=== PATIENT | female | born 2000 | race Caucasian/White ===

== ENCOUNTER 2019-09-08 12:04 | Emergency (ER) | payer BC, SELFPAY ==
[2019-09-08 12:08] VITALS: BP 116/70; PULSE 67; RESP 20; TEMP 36.4; O2SAT 100; BMI 32.1
--- NOTE | 2019-09-08 12:17 | XR_ITS ---
WS: [id number] Left ankle, 3 views, 09/08/2019 Clinical Data: twisted Comparison: Intact ankle x-ray, 09/29/2011 Findings: No fractures or dislocations are seen. The ankle mortise is normal. The talus and calcaneus are unrem arkable. There is soft tissue swelling over the lateral malleolus. XR/XR ankle LT min 3V* [id number] Impression: 1. Negative for left ankle fracture. 2. Soft tissue swelling over lateral malleolus.
--- NOTE | 2019-09-08 12:34 | ED_ITS ---
HPI - Extremity Problem General: Chief complaint: Extremity Injury, Lower Stated complaint: ankle injury/pain Time Seen by Provider: 09/08/19 12:14 Source: patient Mode of arrival: ambulatory Limitations: no limitations History of Present Illness: HPI Narrative: was stepping down and twisted L ankle; has not been able to bear weight on extremity since MD Complaint: joint swelling and joint paint Onset (ago): hour(s) Pain Consistency: constant Location: left and lower extremity Radiation: none Relieving factors: immobilization Exacerbating factors: range of motion and weight bearing Associated symptoms: Reports no associated symptoms Review of Systems Musc: Reports: joint pain and joint swelling PFSH ED PFSH: Statuses (acute, chronic, etc) shown below reflect problem list status as previously entered and may not be historically accurate Social History Smoking and tobacco status: light tobacco smoker Female Reproductive History: Date of last menstrual period: 08/29/19 Physical Exam Const: COMMON NORMALS: no apparent distress, oriented x3, no limitations, alert and well nourished Extremity: OTHER: TTP and swelling noted to L lateral malleolus Neuro: COMMON NORMALS: oriented x3 SENSORIUM/ORIENTATION: Yes alert Course Vital Signs: Vital signs: Vital Signs Temperature 97.6 F 09/08/19 12:08 Pulse Rate 67 09/08/19 12:08 Respiratory Rate 20 H 09/08/19 12:08 Blood Pressure 116/70 09/08/19 12:08 Pulse Oximetry 100 09/08/19 12:08 MDM - Extremity (Nontraumatic) Imaging Data^: L ankle: Radiologist's impression: [address] [address] XRay Report Signed Patient: Marlon Laws Unit #: [id number] : 2000 Age/Sex: 19 / F ADM Date: 08/12 Loc: ER Room/Bed: Attending Dr: Ordering Provider/Ordering MD: Tali Park Date of Service: 09/08/19 Procedure(s): XR ankle LT min 3V* [id number] Accession Number(s): [id number] Report Number: [id number] WS: [id number] Left ankle, 3 views, 09/08/2019 Clinical Data: twisted Comparison: Intact ankle x-ray, 09/29/2011 Findings: No fractures or dislocations are seen. The ankle mortise is normal. The talus and calcaneus are unremarkable. There is soft tissue swelling over the lateral malleolus. XR/XR ankle LT min 3V* [id number] Impression: 1. Negative for left ankle fracture. 2. Soft tissue swelling over lateral malleolus. Dictated By: Hiral Stratton MD Signed By: Hiral Stratton MD Signed Date/Time: 09/08/191248 DD/ 1248 Discharge Plan Discharge Patient Disposition: Home, Self-Care Clinical Impression: Inversion sprain of left ankle Qualifiers: Encounter type: initial encounter Qualified Code(s): S93.402A - Sprain of unspecified ligament of left ankle, initial encounter Condition: Stable Discharge Orders: Discharge Order (Routine); Ordered 09/08/19 Ordered By: Tali Park Referrals: Kimberly Alas APN [Primary Care Provider] - Discharge Diet: Usual diet Discharge Activity: Use walker/crutches as instructed Patient Instructions: RICE Therapy (ED) Activity Restrictions/Additional Instructions: Weight bearing as tolerated. Ice, rest, compression/ALONA, elevation. If pain does not improve over the next week please follow up with primary care for re- evaluation. Coding Level of Care Code ED Business Initiatives Manager for John Hoskins Exam Problem Focused
[2019-09-08 13:08] VITALS: BP 125/80; PULSE 74; RESP 16; O2SAT 99
== END 2019-09-08 13:08 | disposition home or self-care (01) ==
LOC: ER 12:50
PROVIDERS: Emergency Provider Physician Assistant; Family Provider Nurse Practitioner Family; PCP Nurse Practitioner Family
DX: S93.402A Sprain of unspecified ligament of left ankle, initial encounter (principal); X50.1XXA Overexertion from prolonged static or awkward postures, initial encounter; F17.210 Nicotine dependence, cigarettes, uncomplicated
CPT/HCPCS: 29540; 73610; 99282; 99283; E0114

== ENCOUNTER → 2019-09-16 14:13 | Outpatient (BNVA) | payer BC, SELFPAY | PROVIDERS: Visit Provider Nurse Practitioner Family | DX: M25.572 Pain in left ankle and joints of left foot (principal) | CPT/HCPCS: 73610 ==

== ENCOUNTER → 2020-09-10 09:12 | Outpatient (BNVA) | payer BC, SELFPAY | PROVIDERS: Visit Provider Obstetrics & Gynecology | DX: Z12.4 Encounter for screening for malignant neoplasm of cervix (principal); Z11.3 Encounter for screening for infections with a predominantly sexual mode of transmission | CPT/HCPCS: 87491; 87591; 88175 ==

== ENCOUNTER → 2020-10-10 07:51 | Outpatient (BNVA) | payer BC, SELFPAY | PROVIDERS: Visit Provider Obstetrics & Gynecology | DX: Z30.9 Encounter for contraceptive management, unspecified (principal) | CPT/HCPCS: 81025 ==

== ENCOUNTER 2020-11-16 18:27 | Emergency (ER) | payer BC, OTHER, SELFPAY ==
[2020-11-16 18:55] VITALS: BP 125/74; PULSE 84; RESP 18; TEMP 36.5; O2SAT 99; BMI 35.9
--- NOTE | 2020-11-16 18:56 | XRR_ITS ---
PROCEDURE INFORMATION: Exam: XR Right Foot Exam date and time: 11/16/2020 7:12 PM Age: 20 years old Clinical indication: Pain; Foot; Right; Additional info: Injury TECHNIQUE: Imaging protocol: XR Right foot. Views: 3 or more views. COMPARISON: No relevant prior studies available. FINDINGS: Bones/joints: Normal. Soft tissues: Normal. XR/XR foot RT min 3V* [id number] IMPRESSION: No acute findings.
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
== END 2020-11-16 20:36 | disposition home or self-care (01) ==
PROVIDERS: Emergency Provider Physician Assistant
DX: S93.401A Sprain of unspecified ligament of right ankle, initial encounter (principal); S90.811A Abrasion, right foot, initial encounter; V86.35XA Unspecified occupant of 3- or 4- wheeled all-terrain vehicle (ATV) injured in traffic accident, initial encounter; Z87.891 Personal history of nicotine dependence
CPT/HCPCS: 73610; 73630; 99283; E0114

== ENCOUNTER 2021-01-18 18:33 | Emergency (ER) | payer BC, OTHER, MEDICAID, SELFPAY ==
[2021-01-18 18:46] VITALS: BP 132/83; PULSE 77; RESP 18; TEMP 36.7; O2SAT 98; BMI 37.1
[2021-01-18 23:26] VITALS: BP 154/106; PULSE 95; RESP 18; O2SAT 99
--- NOTE | 2021-01-18 23:29 | ED_ITS ---
HPI - Female Genitourinary General: Chief complaint: Urogenital-Female Stated complaint: IUD Complications/Swollen Feet Time Seen by Provider: 01/18/21 23:19 History of Present Illness: HPI Narrative: Patient is a 20-year-old female comes to the ED with vaginal bleeding and UTI symptoms. Patient says she noticed the IUD string hanging out of her vagina earlier today and then started having vaginal bleeding and some abdominal pain. She did state that her period is supposed to start today. Patient had IUD placed back on October 10, 2020. Patient also says that she has a foul odor coming from her vagina that she noticed today as well. She is also complaining of having some burning when she urinates and also having increased urine frequency. She states she feels like she has to urinate a lot more than usual. Denies any fever, chills, nausea/vomiting, bowel symptoms. Associated symptoms: Reports abdominal pain (Generalized left upper and left lower quadrant pain); Deny headache(s) or nausea Date of Last Menstrual Period: 01/18/21 Review of Systems Const: Denies: fever(s), chills or fatigue Eyes: Denies: change in vision or eye discomfort ENMT: Denies: throat pain, odynophagia, nasal discharge or nasal congestion Card: Denies: chest pain, palpitations, edema, swelling of feet/ankles, dyspnea on exertion or orthopnea Resp: Denies: dyspnea, productive cough or non-productive cough GI: Reports: abdominal pain (Generalized left upper and left lower quadrant pain); Denies: nausea, vomiting, diarrhea, constipation or hematochezia : Reports: dysuria, urinary frequency, vaginal odor, vaginal bleeding and other (IUD string outside of vagina); Denies: flank pain or hematuria Musc: Denies: neck pain, back pain or extremity swelling Skin/Breast: Denies: rash or new lesions Neuro: Denies: headache(s), numbness in extremities or weakness in extremities PFSH ED PFSH: Medical History Depression Has had symptoms on and off since she was a teenager and has taken medication in the past. Denies any medicine use since 2049 until she was placed on Zoloft and this has been working well for her. Is being managed by her primary care provider. She does not have a therapist No pertinent past medical history Denies diabetes, asthma, hypertension, seizures, DVT/PE PCP: SIMÓN Rodríguez Surgical History History of cholecystectomy July 2019---laparoscopic procedure performed at [facility] by Dr. Nava [place] teeth removed (~2013) 2013 Family History Grandmother Breast cancer paternal, age at diagnosis unknown Family/Other Diabetes Maternal great aunt, [place] great grandmother Breast cancer maternal great grandmother, diagnosed at age 84 Denies family history of Colon cancer Ovarian cancer Heart disease Hyperlipidemia Hypertension Uterine cancer Thyroid condition Stroke Social History Smoking and tobacco status: former smoker Quit status (tobacco): has quit using tobacco Year quit tobacco: 02/23/2019 Former quit date comment: Started smoking at age 16; smoked 1/2 pack per day Alcohol intake: never Current occupational status: unemployed Female Reproductive History: Date of last menstrual period: 01/18/21 Physical Exam Const: COMMON NORMALS: no acute distress, patient oriented x3, healthy appearing and alert GENERAL APPEARANCE: cooperative and comfortable HENMT: COMMON NORMALS: normocephalic HEAD & SCALP: normocephalic MOUTH: Normal oral and palatal mucosa present THROAT: posterior oropharynx normal and uvula midline Neck/C-Spine: COMMON NORMALS: supple GENERAL: Yes normal visual inspection Resp: COMMON NORMALS: normal respiratory effort, No retractions, No use of accessory muscles and clear to auscultation bilaterally AUSCULTATION: clear to auscultation bilaterally Cardio: COMMON NORMALS: regular rate, regular rhythm, S1 normal heart sound present, S2 normal heart sound present, No gallops present (Cardio), No clicks present (Cardio), No murmurs present (Cardio) and Peripheral pulses 2+ throughout RATE: regular rate RHYTHM: regular rhythm HEART SOUNDS: S1 normal heart sound present and S2 normal heart sound present PERIPHERAL PULSES: Peripheral pulses 2+ throughout GI: COMMON NORMALS: Normal to inspection, nondistended, normoactive bowel sounds present, Soft to palpation, non-tender and no masses PALPATION: Yes Soft to palpation and Yes Tenderness to palpation present (GI) (Generalized) Details: LLQ and LUQ : COMMON NORMALS: Yes no CVA tenderness BLADDER/KIDNEY EXAM: Yes bladder normal to palpation and Yes no CVA tenderness BIMANUAL EXAM - VAGINA & UTERUS: Yes bladder normal to palpation Back/Pelvis: COMMON NORMALS: no CVA tenderness Extremity: COMMON NORMALS: normal to inspection Neuro: COMMON NORMALS: patient oriented x3 and moves all extremities SENSORIUM/ORIENTATION: Yes alert Skin: GENERAL SKIN EXAM: dry skin Course Vital Signs: Vital signs: Vital Signs Temperature 98.1 F 01/18/21 18:46 Pulse Rate 83 01/19/21 01:35 Respiratory Rate 18 01/19/21 01:35 Blood Pressure 142/84 01/19/21 01:35 Pulse Oximetry 100 01/19/21 01:35 MDM - Female MDM Narrative: Medical decision making narrative: Patient is a 20-year-old female comes to the ED with some vaginal bleeding and is concerned about IUD being out of place. Patient says she is supposed to be starting her period today as well. CBC, CMP and UA were unremarkable. hCG negative. Ultrasound of the pelvic with transvaginal shows IUD in good placement in no other acute findings. Patient was diagnosed with IUD in place and discharged home. She was told to follow-up with her OB/gyne doctor in the next 7 days for reevaluation. Return to ED precautions given. Patient understood and agree with plan. Lab Data: Attestation: I reviewed the patient's lab results. Labs: Lab Results 01/18/21 01/18/21 01/18/21 Range/Units 23:45 23:45 23:45 WBC 9.6 (4.0-10.0) 10^3/ uL RBC 4.58 (4.1-5.3) 10^6/u L Hgb 12.3 (11.5-15.3) g/dL Hct 37.4 (37.0-47.0) % MCV 81.7 (81-99) fL MCH 26.9 L (28.0-34.0) pg MCHC 32.9 (30.0-36.0) g/dL RDW 13.7 (12.1-15.1) % Plt Count 279 (130-400) 10^3/c mm MPV 8.9 (7.4-10.4) fL Neut % (Auto) 58.3 % Lymph % (Auto) 32.5 % Piatt % (Auto) 6.7 % Eos % (Auto) 1.8 % Baso % (Auto) 0.4 % Neut # (Auto) 5.60 (1.8-7.7) 10^3/u L Lymph # (Auto) 3.1 (0.8-4.8) 10^3/u L Piatt # (Auto) 0.6 (0.2-0.9) 10^3/u L Eos # (Auto) 0.2 (0.0-0.8) 10^3/u L Baso # (Auto) 0.0 (0.0-0.1) 10^3/u L Nucleated RBC % (a uto) 0 % Nucleated RBCs # 0.0 /100WBC Sodium 137 (136-145) mmol/L Potassium 3.9 (3.5-5.1) mmol/L Chloride 103 (98-107) mmol/L Carbon Dioxide 21 L (22-29) mmol/L Anion Gap 16.9 (5-19) BUN 8 (6-20) mg/dL Creatinine 0.5 (0.5-0.9) mg/dL GFR Calculation 155.7 H (90-130) mL/min Glucose 94 (65-115) mg/dL Calculated Osmolal ity 282 L (285-295) mOsm/k g Calcium 8.6 (8.5-10.5) mg/dL Total Bilirubin 0.4 (0.15-1.2) mg/dL AST 17 (0-32) U/L ALT 14 (0-33) U/L Alkaline Phosphata se 68 (35-105) IU/L Total Protein 6.8 (6.6-8.7) g/dL Albumin 4.3 (3.5-5.2) g/dL Globulin 2.5 (1.3-4.6) g/dL HCG, Qual Negative (Negative) Urine Color (Yellow) Urine Appearance (CLEAR) Urine pH (5-7) Ur Specific Gravit y (1.005-1.030) Urine Protein (Negative) Urine Glucose (UA) (Normal) Urine Ketones (Negative) Urine Blood (Negative) Urine Nitrate (Negative) Urine Bilirubin (Negative) Urine Urobilinogen (Negative) mg/dL Ur Leukocyte Cindy ase (Negative) Urine RBC (0-2) /hpf Urine WBC (0-5) /hpf Ur Squamous Epith Cells (0-5) /hpf Amorphous Sediment Urine Bacteria (NONE) /hpf 01/19/21 Range/Units 00:39 WBC (4.0-10.0) 10^3/ uL RBC (4.1-5.3) 10^6/u L Hgb (11.5-15.3) g/dL Hct (37.0-47.0) % MCV (81-99) fL MCH (28.0-34.0) pg MCHC (30.0-36.0) g/dL RDW (12.1-15.1) % Plt Count (130-400) 10^3/c mm MPV (7.4-10.4) fL Neut % (Auto) % Lymph % (Auto) % Piatt % (Auto) % Eos % (Auto) % Baso % (Auto) % Neut # (Auto) (1.8-7.7) 10^3/u L Lymph # (Auto) (0.8-4.8) 10^3/u L Piatt # (Auto) (0.2-0.9) 10^3/u L Eos # (Auto) (0.0-0.8) 10^3/u L Baso # (Auto) (0.0-0.1) 10^3/u L Nucleated RBC % (a uto) % Nucleated RBCs # /100WBC Sodium (136-145) mmol/L Potassium (3.5-5.1) mmol/L Chloride (98-107) mmol/L Carbon Dioxide (22-29) mmol/L Anion Gap (5-19) BUN (6-20) mg/dL Creatinine (0.5-0.9) mg/dL GFR Calculation (90-130) mL/min Glucose (65-115) mg/dL Calculated Osmolal ity (285-295) mOsm/k g Calcium (8.5-10.5) mg/dL Total Bilirubin (0.15-1.2) mg/dL AST (0-32) U/L ALT (0-33) U/L Alkaline Phosphata se (35-105) IU/L Total Protein (6.6-8.7) g/dL Albumin (3.5-5.2) g/dL Globulin (1.3-4.6) g/dL HCG, Qual (Negative) Urine Color Yellow (Yellow) Urine Appearance Sl cloudy A (CLEAR) Urine pH 5 (5-7) Ur Specific Gravit y 1.010 (1.005-1.030) Urine Protein Neg (Negative) Urine Glucose (UA) Norm (Normal) Urine Ketones Negative (Negative) Urine Blood 3+ H (Negative) Urine Nitrate Negative (Negative) Urine Bilirubin Neg (Negative) Urine Urobilinogen Norm (Negative) mg/dL Ur Leukocyte Cindy ase Negative (Negative) Urine RBC >100 H (0-2) /hpf Urine WBC 0-4 H (0-5) /hpf Ur Squamous Epith Cells 0-4 H (0-5) /hpf Amorphous Sediment Not Reportable Urine Bacteria Trace (NONE) /hpf Imaging Data: US: Attestation: I personally reviewed and interpreted this imaging study as follows: Radiologist's impression: Pelvic ultrasound with transvaginal?prelim report?IUD in place and no other acute findings noted. Discharge Plan Discharge Patient Disposition: Home Clinical Impression: IUD (intrauterine device) in place Condition: Stable Prescriptions: No Action sertraline [Zoloft] 100 mg tablet 100 mg PO DAILY PRNRF: 0 Mirena 20 mcg/24 hours (6 yrs) 52 mg intrauterine device 1 device intrauterine .every 5 years Qty: 1 RF: 0 Discharge Orders: Discharge ED (Routine); Ordered 01/19/21 Ordered By: Joey Bailon Referrals: [facility], [Primary Care Provider] - Discharge Diet: Regular Discharge Activity: Resume usual activity Patient Instructions: Intrauterine Device (GEN) Activity Restrictions/Additional Instructions: Follow-up with your telecommunications network engineer doctor in 7 to 10 days for reevaluation. Take [id number] Tylenol or ibuprofen for any pain.. Return to the ER or your medical provider if condition worsens. Please read and understand discharge instructions. Thank you for choosing [facility] for your healthcare needs today. Please realize this is an emergency room and that we are providing you with a medical screening exam and this may not be complete and all inclusive of all the testing and or work up that you may need to determine your ailment or severity of your illness. It is very important that you follow up as instructed or that you return to the Emergency Department should you have concerns or if your condition changes or worsens in any way. Coding Level of Care Code ED Aircraft Mechanic Electrical And Radio for John Hoskins Exam Comprehensive
[2021-01-18 23:55] LABS: Basophils % 0.4 %; Eosinophils # 0.2 10^3/uL (0.0-0.8); Eosinophils % 1.8 %; Hematocrit 37.4 % (37.0-47.0); Hemoglobin 12.3 g/dL (11.5-15.3); Lymphocytes # 3.1 10^3/uL (0.8-4.8); Lymphocytes % 32.5 %; Mean Corpuscular HGB Conc 32.9 g/dL (30.0-36.0); Mean Corpuscular Hemoglobin 26.9 pg (28.0-34.0); Mean Corpuscular Volume 81.7 fL (81-99); Mean Platelet Volume 8.9 fL (7.4-10.4); Monocytes # 0.6 10^3/uL (0.2-0.9); Monocytes % 6.7 %; Neutrophils % 58.3 %; Nucleated Red Blood Cells % 0 %; Platelet Count 279 10^3/cmm (130-400); Red Blood Count 4.58 10^6/uL (4.1-5.3); Red Cell Distribution Width 13.7 % (12.1-15.1); White Blood Count 9.6 10^3/uL (4.0-10.0)
[2021-01-19 00:10] LABS: HCG, Serum Qual Negative (Negative)
[2021-01-19 00:15] LABS: Alanine Aminotransferase 14 U/L (0-33); Albumin Level 4.3 g/dL (3.5-5.2); Alkaline Phosphatase 68 IU/L (35-105); Anion Gap 16.9 (5-19); Aspartate Amino Transferase 17 U/L (0-32); Blood Urea Nitrogen 8 mg/dL (6-20); Calcium 8.6 mg/dL (8.5-10.5); Carbon Dioxide 21 mmol/L (22-29); Chloride 103 mmol/L (98-107); Globulin 2.5 g/dL (1.3-4.6); Glomerular Filtration Rate 155.7 mL/min (90-130); Glucose 94 mg/dL (65-115); Osmolality Calculated 282 mOsm/kg (285-295); Potassium 3.9 mmol/L (3.5-5.1); Sodium 137 mmol/L (136-145); Total Bilirubin 0.4 mg/dL (0.15-1.2); Total Protein 6.8 g/dL (6.6-8.7)
--- NOTE | 2021-01-19 00:36 | PC.NURSE ---
US in room
[2021-01-19 00:44] LABS: Add Urine Microscopic? YES; Bilirubin Urine Neg (Negative); Blood Urine 3+ (Negative); Glucose Urine UA Norm (Normal); Ketones Urine Negative (Negative); Leukocyte Esterase Urine Negative (Negative); Nitrate Urine Negative (Negative); Protein Urine Neg (Negative); Urine Color Yellow (Yellow); Urobilinogen Urine Norm (Negative); pH Urine 5 (5-7)
[2021-01-19 00:52] LABS: Add Urine Culture? Yes; Bacteria Urine TRACE /hpf; RBC Urine >100 /hpf (0-2); Squamous Epithelial Cell Urine 0-4 /hpf (0-5); WBC Urine 0-4 /hpf (0-5)
[2021-01-19 01:35] VITALS: BP 142/84; PULSE 83; RESP 18; O2SAT 100
--- NOTE | 2021-01-19 23:28 | USR_ITS ---
PROCEDURE INFORMATION: Exam: US Pelvis Complete, Transabdominal and US Pelvis, Transvaginal Exam date and time: 01/19/2021 12:16 AM Age: 20 years old Clinical indication: Other: PT felt string on iud, was afraid it was not in place TECHNIQUE: Imaging protocol: Real-time transabdominal and transvaginal pelvic ultrasound (complete) with image documentation. Transvaginal imaging was used for better evaluation of the endometrium, adnexa, and/or cervix. COMPARISON: US OB Limited [id number] 05/02/2019 12:01 PM FINDINGS: The uterus measures 7-8 cm in length. There is no visible focal myometrial mass. An IUD is present within the fundus of the uterus. This appears to be in satisfactory position, within limits of the exam. There is no intrauterine fluid. Endometrial thickness is 4.4 mm. There is no free pelvic fluid. The right ovary measures 33 x 19 x 30 mm, estimated volume 9.8 cc. The right ovary appears essentially unremarkable. The left ovary measures 27 x 20 x 21 mm, estimated volume 5.8 cc. The left ovary appears essentially unremarkable. Blood flow detected in each ovary. The urinary bladder was not completely evaluated/imaged at this time. Endovaginal scanning provided better visualization/evaluation of the endometrium and ovaries/adnexal regions, as discussed above. US/US pelvic with transvaginal IMPRESSION: 1. An IUD is present within the uterus, see above details. 2. Otherwise, essentially unremarkable sonographic appearance of the uterus and ovaries. 3. Other details discussed above.
== END 2021-01-19 01:35 | disposition home or self-care (01) ==
PROVIDERS: Emergency Medicine; Emergency Provider Physician Assistant
DX: Z97.5 Presence of (intrauterine) contraceptive device (principal)
CPT/HCPCS: 76830; 76856; 80053; 81001; 84703; 85025; 87086; 99283

== ENCOUNTER → 2021-03-18 11:29 | Outpatient (BNVA) | payer BC, OTHER, MEDICAID, SELFPAY | PROVIDERS: Visit Provider Nurse Practitioner Family | DX: Z20.822 Contact with and (suspected) exposure to COVID-19 (principal); J06.9 Acute upper respiratory infection, unspecified | CPT/HCPCS: 87635 ==

== ENCOUNTER → 2023-06-18 12:47 | Outpatient (BNVA) | payer BC, SELFPAY | PROVIDERS: Visit Provider Nurse Practitioner Women's Health | DX: Z32.00 Encounter for pregnancy test, result unknown (principal); N92.6 Irregular menstruation, unspecified | CPT/HCPCS: 81025 ==

== ENCOUNTER → 2023-06-22 08:25 | Outpatient (BNVA) | payer BC, SELFPAY | PROVIDERS: Visit Provider Obstetrics & Gynecology | DX: O46.91 Antepartum hemorrhage, unspecified, first trimester (principal); Z3A.01 Less than 8 weeks gestation of pregnancy | CPT/HCPCS: 76817; 84702; 86850 ==

== ENCOUNTER → 2023-07-09 08:58 | Outpatient (BNVA) | payer BC, MEDICAID, SELFPAY | PROVIDERS: Visit Provider Nurse Practitioner Women's Health | DX: O99.340 Other mental disorders complicating pregnancy, unspecified trimester; F41.9 Anxiety disorder, unspecified; Z34.80 Encounter for supervision of other normal pregnancy, unspecified trimester; A63.0 Anogenital (venereal) warts; Z3A.00 Weeks of gestation of pregnancy not specified | CPT/HCPCS: 81000 ==

== ENCOUNTER 2023-07-18 14:41 | Emergency (ER) | payer BC, MEDICAID, SELFPAY ==
[2023-07-18 14:43] VITALS: BP 120/70; PULSE 94; RESP 16; TEMP 36.8; O2SAT 99; BMI 30.5
--- NOTE | 2023-07-18 14:52 | ED_ITS ---
HPI - 2 General: Chief complaint: OB/Uterine Contractions Stated complaint: spotting,abd pain,10 wks preg Time Seen by Provider: 07/18/23 14:45 Source: patient Mode of arrival: ambulatory Limitations: no limitations History of Present Illness: Patient is a female at approximately 10 weeks here for complaints of vaginal bleeding/cramping. Patient states yesterday she had a very small amount of streaked blood on her toilet paper only noticed when wiping. She states she did not have any bleeding the remainder of the day or evening but states today she began having more bright red blood and quantifies as enough to soak a pad. She states bleeding upon arrival to the ED has improved. She is having some intermittent pelvic cramping. Patient is followed by Dr. Coates. She has an appointment with him on Thursday. She has had a previous ultrasound on 06/22 showing a live IUP. She was roughly 7 weeks of that ultrasound. Patient is not having any dysuria, frequency, urgency. She denies vaginal discharge, itching, or odor. She denies new sexual partners or concern for STIs. MD Complaint: vaginal bleeding Onset (ago): hour(s) Pain Consistency: intermittent Location: pelvis Severity: mild Quality: Cramping Relieving factors: none Exacerbating factors: none Vaginal discharge: none Vaginal bleeding: light Patient : Yes OB History - Current : no complications OB History - Previous Pregnancies: no complications care: followed by OB (Dr. Coates) and previous ultrasound confirms IUP Associated symptoms: Deny abdominal pain, dysuria, headache(s), malaise, nausea, vaginal discharge or vomiting Review of Systems 2 Const: Denies: fever(s), chills, body aches, fatigue or malaise Card: Denies: chest pain Resp: Denies: dyspnea GI: Denies: abdominal pain, nausea, vomiting or diarrhea : Reports: vaginal bleeding and pelvic pain (cramping); Denies: flank pain, difficulty voiding, dysuria, urinary frequency, urinary urgency, urinary hesitancy, genital lesions, genital pruritis or vaginal discharge Musc: Denies: neck pain, back pain, extremity pain or joint pain Skin/Breast: Denies: rash Neuro: Denies: headache(s), numbness in extremities, weakness in extremities or sensory changes PFSH ED 2 PFSH: Medical History No pertinent past medical history Denies diabetes, asthma, hypertension, seizures, DVT/PE PCP: SIMÓN Rodríguez Depression Has had symptoms on and off since she was a teenager and has taken medication in the past. Denies any medicine use since 2049 until she was placed on Zoloft and this has been working well for her. Is being managed by her primary care provider. She does not have a therapist Surgical History History of cholecystectomy July 2019---laparoscopic procedure performed at [facility] [place] by Dr. Elijah Adair teeth removed (~2013) 2013 Family History Grandmother Breast cancer paternal, age at diagnosis unknown Family/Other Diabetes Maternal great aunt, [place] great grandmother Breast cancer maternal great grandmother, diagnosed at age 84 Denies family history of Colon cancer Ovarian cancer Heart disease Hyperlipidemia Hypertension Uterine cancer Thyroid disease Stroke Physical Exam 2 Const: COMMON NORMALS: no acute distress, average body habitus, patient oriented x3, no limitations, healthy appearing and well nourished GI: COMMON NORMALS: Normal to inspection, nondistended, normoactive bowel sounds present, Soft to palpation, No hepatosplenomegaly present and no masses INSPECTION: Yes normal to inspection PALPATION: Yes Soft to palpation, Yes Tenderness to palpation present (GI) (mild tenderness lower abdomen/pelvis), No Guarding due to palpation present (GI), No Rigid due to palpation and Yes No hepatosplenomegaly present : COMMON NORMALS: Yes no CVA tenderness BLADDER/KIDNEY EXAM: Yes no CVA tenderness Back/Pelvis: COMMON NORMALS: no CVA tenderness Extremity: GENERAL: Yes normal exam except as noted Neuro: COMMON NORMALS: patient oriented x3 Skin: COMMON NORMALS: no rashes or lesions noted GENERAL SKIN EXAM: no rashes or lesions noted Course 2 Vital Signs: Vital signs: Vital Signs Temperature 98.2 F 07/18/23 14:43 Pulse Rate 80 07/18/23 15:30 Respiratory Rate 12 07/18/23 15:24 Blood Pressure 121/53 07/18/23 15:30 Pulse Oximetry 100 07/18/23 15:30 Oxygen Delivery Me thod Room Air 07/18/23 15:24 MDM - OB/Uterine Contractions Medical Decision Making US showing live IUP with normal heart rate. Vitals/blood work are unremarkable. She is AB positive blood type. She has follow up with Dr. Coates on Thursday already scheduled. Recommend pelvic rest until then. Return precautions given. Lab Data 07/18/23 14:53 07/18/23 14:53 Laboratory Results WBC 10.36 10^3/uL (3.29-11.43) 07/18/23 14:53 RBC 4.21 10^6/uL (3.85-5.65) 07/18/23 14:53 Hgb 12.40 g/dL (11.27-16.99) 07/18/23 14:53 Hct 38.4 % (36-47) 07/18/23 14:53 MCV 91.2 fl (85-98) 07/18/23 14:53 MCH 29.5 pg (27-33) 07/18/23 14:53 MCHC 32.3 g/dL (30-55) 07/18/23 14:53 RDW 12.9 % (12.1-15.1) 07/18/23 14:53 Plt Count 208 10^3/cmm (157-399) 07/18/23 14:53 MPV 8.6 fL (7.4-10.4) 07/18/23 14:53 Neut % (Auto) 72.0 % 07/18/23 14:53 Lymph % (Auto) 19.8 % 07/18/23 14:53 [place] % (Auto) 5.2 % 07/18/23 14:53 Eos % (Auto) 2.3 % 07/18/23 14:53 Baso % (Auto) 0.3 % 07/18/23 14:53 Neut # (Auto) 7.46 10^3/uL (1.8-7.7) 07/18/23 14:53 Lymph # (Auto) 2.1 10^3/uL (0.8-4.8) 07/18/23 14:53 [place] # (Auto) 0.5 10^3/uL (0.2-0.9) 07/18/23 14:53 Eos # (Auto) 0.2 10^3/uL (0.0-0.8) 07/18/23 14:53 Baso # (Auto) 0.0 10^3/uL (0.0-0.1) 07/18/23 14:53 Nucleated RBC % (auto) 0 % 07/18/23 14:53 Nucleated RBCs # 0.0 /100WBC 07/18/23 14:53 Sodium 136 mmol/L (136-145) 07/18/23 14:53 Potassium 3.7 mmol/L (3.5-5.1) 07/18/23 14:53 Chloride 105 mmol/L (98-107) 07/18/23 14:53 Carbon Dioxide 18 mmol/L (22-29) L 07/18/23 14:53 Anion Gap 16.7 (5-19) 07/18/23 14:53 BUN 9 mg/dL (6-20) 07/18/23 14:53 Creatinine 0.6 mg/dL (0.5-0.9) 07/18/23 14:53 GFR Calculation 123.9 mL/min (90-130) 07/18/23 14:53 Glucose 88 mg/dL (65-115) 07/18/23 14:53 Calculated Osmolality 280 mOsm/kg (285-295) L 07/18/23 14:53 Calcium 8.8 mg/dL (8.5-10.5) 07/18/23 14:53 Total Bilirubin 0.2 mg/dL (0.15-1.2) 07/18/23 14:53 AST 11 U/L (0-32) 07/18/23 14:53 ALT 10 U/L (0-33) 07/18/23 14:53 Alkaline Phosphatase 40 U/L (35-105) 07/18/23 14:53 Total Protein 6.7 g/dL (6.6-8.7) 07/18/23 14:53 Albumin 3.8 g/dL (3.5-5.2) 07/18/23 14:53 Globulin 2.9 g/dL (1.3-4.6) 07/18/23 14:53 Ser , Semi-Qnt 81363.00 mIU/mL 07/18/23 14:53 Blood Type AB Positive 07/18/23 14:53 Rho(D) Type Rh positive 07/18/23 14:53 XR interpretation done by ED provider, pending radiology final review (normal OB ultrasound per Brian/US tech) Discharge Plan Discharge Patient Disposition: Home Clinical Impression: First trimester bleeding Condition: Stable Prescriptions: No Action buspirone 5 mg tablet 5 mg PO BID Qty: 60 0RF Gummies 400 mcg-35 mg- 25 mg-5 mg tablet,chewable PO Discharge Orders: Discharge ED (Routine); Ordered 07/18/23 Ordered By: [place]ali [place] Referrals: Kimberly Alas APN [Primary Care Provider] - Activity Restrictions/Additional Instructions: As we discussed ultrasound appeared normal today. I recommend pelvic rest until you see Dr. Coates on Thursday at your currently scheduled appointment. Coding Level of Care Code ED Multifocal Lens Inspector for John Hoskins
--- NOTE | 2023-07-18 14:59 | USR_ITS ---
PROCEDURE INFORMATION: Exam: US First Trimester, Transabdominal and US , Transvaginal Exam date and time: 07/18/2023 3:56 PM Age: 22 years old Clinical indication: Lmp or gestational age (in weeks): 11w1d; Antepartum complications; Bleeding; ; Additional info: Bleeding/cramping; Approx 10 wks preg LABS AND CLINICAL REPORTS: Last menstrual period start date: 05/01/2023 Gestational age (Established): 11 w 1 d Estimated due date (Established): 02/05/2024 TECHNIQUE: Imaging protocol: Real-time transabdominal obstetrical ultrasound of the maternal pelvis and a first trimester , less than 14 weeks 0 days, with image documentation. Transvaginal imaging was used for better evaluation of the fetus, adnexa, and/or cervix. COMPARISON: US OB transvaginal [id number] 06/22/2023 8:29 AM FINDINGS: Gestation: Single live intrauterine . Embryonic/ heart rate: 176 bpm. heart rate 176 bpm. Extra-embryonic membranes/Placenta: Unremarkable. No subchorionic bleed. Amniotic fluid: Amniotic fluid and extra-amniotic fluid is normal for gestational age. BIOMETRY: Gestational age (AUA): 11 w 3 d. Ultrasonographic age 11 weeks 3 days. [place] length (CRL): 46.3 mm. EGA (CRL) is 11 w 3 d MATERNAL: Uterus: Unremarkable. Cervix: Cervical length measures 4.59 cm. Right ovary/adnexa: Right ovary not visualized. Left ovary/adnexa: Left ovary 15 mm cyst, likely follicular. Intraperitoneal space: No intraperitoneal free fluid. US/US OB <= 14 weeks fetus [id number] IMPRESSION: 1. Single live intrauterine . 2. Ultrasonographic age 11 weeks 3 days. 3. heart rate 176 bpm. 4. Right ovary not visualized. 5. Left ovary 15 mm cyst, likely follicular.
[2023-07-18 15:05] LABS: Basophils % 0.3 %; Eosinophils # 0.2 10^3/uL (0.0-0.8); Eosinophils % 2.3 %; Hematocrit 38.4 % (36-47); Lymphocytes # 2.1 10^3/uL (0.8-4.8); Lymphocytes % 19.8 %; Mean Corpuscular HGB Conc 32.3 g/dL (30-55); Mean Corpuscular Hemoglobin 29.5 pg (27-33); Mean Corpuscular Volume 91.2 fl (85-98); Mean Platelet Volume 8.6 fL (7.4-10.4); Monocytes # 0.5 10^3/uL (0.2-0.9); Monocytes % 5.2 %; Neutrophils # 7.46 10^3/uL (1.8-7.7); Nucleated Red Blood Cells % 0 %; Platelet Count 208 10^3/cmm (157-399); Red Blood Count 4.21 10^6/uL (3.85-5.65); Red Cell Distribution Width 12.9 % (12.1-15.1); White Blood Count 10.36 10^3/uL (3.29-11.43)
[2023-07-18 15:24] VITALS: BP 100/62; RESP 12; O2SAT 100
[2023-07-18 15:30] VITALS: BP 121/53; PULSE 80; O2SAT 100
[2023-07-18 15:38] LABS: Alanine Aminotransferase 10 U/L (0-33); Albumin Level 3.8 g/dL (3.5-5.2); Alkaline Phosphatase 40 U/L (35-105); Anion Gap 16.7 (5-19); Aspartate Amino Transferase 11 U/L (0-32); Blood Urea Nitrogen 9 mg/dL (6-20); Calcium 8.8 mg/dL (8.5-10.5); Carbon Dioxide 18 mmol/L (22-29); Chloride 105 mmol/L (98-107); Globulin 2.9 g/dL (1.3-4.6); Glomerular Filtration Rate 123.9 mL/min (90-130); Glucose 88 mg/dL (65-115); Osmolality Calculated 280 mOsm/kg (285-295); Potassium 3.7 mmol/L (3.5-5.1); Sodium 136 mmol/L (136-145); Total Bilirubin 0.2 mg/dL (0.15-1.2); Total Protein 6.7 g/dL (6.6-8.7)
[2023-07-18 16:38] VITALS: BP 121/53; PULSE 80; O2SAT 100
== END 2023-07-18 16:38 | disposition home or self-care (01) ==
PROVIDERS: Emergency Provider Physician Assistant; PCP Nurse Practitioner Family
DX: O20.9 Hemorrhage in early pregnancy, unspecified (principal); Z3A.10 10 weeks gestation of pregnancy
CPT/HCPCS: 36415; 76801; 80053; 84702; 85025; 86900; 99284

== ENCOUNTER → 2023-07-20 07:58 | Outpatient (BNVA) | payer BC, MEDICAID, SELFPAY | PROVIDERS: PCP Nurse Practitioner Family; Visit Provider Obstetrics & Gynecology | DX: Z34.80 Encounter for supervision of other normal pregnancy, unspecified trimester (principal) | CPT/HCPCS: 80307; 84315; 87086 ==

== ENCOUNTER → 2023-07-30 12:24 | Outpatient (BNVA) | payer BC, MEDICAID, SELFPAY | PROVIDERS: PCP Nurse Practitioner Family; Visit Provider Obstetrics & Gynecology | DX: Z34.90 Encounter for supervision of normal pregnancy, unspecified, unspecified trimester (principal); Z34.80 Encounter for supervision of other normal pregnancy, unspecified trimester; A63.0 Anogenital (venereal) warts; F41.9 Anxiety disorder, unspecified | CPT/HCPCS: 81000; 82105; 85025; 86592; 86762; 86803; 86850; 86900; 87340; 87491; 87591; 87806; 88175 ==

== ENCOUNTER → 2023-08-21 08:59 | Outpatient (BNVA) | payer BC, MEDICAID, SELFPAY | PROVIDERS: Visit Provider Nurse Practitioner Women's Health | DX: Z34.80 Encounter for supervision of other normal pregnancy, unspecified trimester (principal) | CPT/HCPCS: 82105; 84315 ==

== ENCOUNTER → 2023-09-21 09:36 | Outpatient (BNVA) | payer BC, MEDICAID, SELFPAY | PROVIDERS: Visit Provider Nurse Practitioner Women's Health | DX: Z34.90 Encounter for supervision of normal pregnancy, unspecified, unspecified trimester (principal) | CPT/HCPCS: 76805 ==

== ENCOUNTER → 2023-10-21 08:17 | Outpatient (BNVA) | payer BC, MEDICAID, SELFPAY | PROVIDERS: Visit Provider Nurse Practitioner Women's Health | DX: Z34.90 Encounter for supervision of normal pregnancy, unspecified, unspecified trimester; A74.9 Chlamydial infection, unspecified | CPT/HCPCS: 80307; 82950; 84315; 87491; 87591 ==

== ENCOUNTER → 2023-10-22 | Outpatient (BNVA) | payer BC, MEDICAID, SELFPAY | PROVIDERS: Visit Provider Nurse Practitioner Women's Health | DX: Z34.90 Encounter for supervision of normal pregnancy, unspecified, unspecified trimester | CPT/HCPCS: 80324; 80359 ==

== ENCOUNTER → 2023-10-29 14:16 | Outpatient (BNVA) | payer BC, MEDICAID, SELFPAY | PROVIDERS: Visit Provider Nurse Practitioner Women's Health | DX: Z34.90 Encounter for supervision of normal pregnancy, unspecified, unspecified trimester (principal) | CPT/HCPCS: 76816 ==

== ENCOUNTER → 2023-11-19 07:58 | Outpatient (BNVA) | payer BC, MEDICAID, SELFPAY | PROVIDERS: Visit Provider Obstetrics & Gynecology | DX: O99.342 Other mental disorders complicating pregnancy, second trimester; F32.A Depression, unspecified; F41.9 Anxiety disorder, unspecified; O98.812 Other maternal infectious and parasitic diseases complicating pregnancy, second trimester; A74.9 Chlamydial infection, unspecified; A63.0 Anogenital (venereal) warts; Z36.2 Encounter for other antenatal screening follow-up; Z3A.28 28 weeks gestation of pregnancy | CPT/HCPCS: 84315; 85025 ==

== ENCOUNTER 2023-12-02 21:45 | Outpatient (CLI) | payer BC, MEDICAID, SELFPAY ==
[2023-12-02 22:26] VITALS: BP 128/71; PULSE 86
[2023-12-02 22:42] VITALS: BP 120/59; PULSE 78
--- NOTE | 2023-12-02 22:43 | USR_ITS ---
PROCEDURE INFORMATION: Exam: US , Limited Exam date and time: 12/02/2023 10:54 PM Age: 23 years old Clinical indication: Lmp or gestational age (in weeks): 31w 0d; Antepartum complications; Bleeding; ; Patient HX: Spotting today LABS AND CLINICAL REPORTS: Last menstrual period start date: 04/28/2023 Gestational age (Established): 31 w 0 d Estimated due date (Established): 02/03/2024 TECHNIQUE: Imaging protocol: Real-time ultrasound of the maternal uterus with image documentation. Exam focused on the clinical indication. COMPARISON: [place] [id number] 10/29/2023 2:23 PM FINDINGS: Single living fetus in cephalic position. heart activity documented by the technologist, 134 bpm. Posterior placenta. No visible placental abnormality on the provided images. Amniotic fluid volume appears within normal limits for gestation, LARISA 15.6 cm Cervical length was estimated with transabdominal scanning, measuring approximately 3.9 cm. No definite cervical canal dilation or fluid on the provided images. measurements were not obtained at this time. Evaluation of anatomy was not performed at this time. No visible maternal adnexal abnormality. The urinary bladder was not completely evaluated/imaged at this time. US/US OB limited [id number] IMPRESSION: 1. Single living fetus, details above. 2. Posterior placenta. No visible placental abnormality on the provided images. 3. Amniotic fluid volume appears within normal limits for gestation, LARISA 15.6 cm 4. Other details discussed above.
[2023-12-03 00:10] VITALS: BP 124/57; PULSE 81
== END 2023-12-03 00:10 | disposition home or self-care (01) ==
LOC: OPOB 21:47 → OBGYN 21:48
PROVIDERS: Visit Provider Obstetrics & Gynecology
DX: O46.93 Antepartum hemorrhage, unspecified, third trimester (principal); Z3A.31 31 weeks gestation of pregnancy
CPT/HCPCS: 59025; 76815; 99211

== ENCOUNTER → 2024-01-11 07:49 | Outpatient (BNVA) | payer BC, MEDICAID, SELFPAY | PROVIDERS: Visit Provider Obstetrics & Gynecology | DX: Z34.80 Encounter for supervision of other normal pregnancy, unspecified trimester (principal); R82.5 Elevated urine levels of drugs, medicaments and biological substances | CPT/HCPCS: 80307; 84315; 87081 ==

== ENCOUNTER 2024-01-31 22:32 | Inpatient (IN) | payer BC, MEDICAID, SELFPAY ==
[2024-01-31 22:51] VITALS: BP 140/85; PULSE 117
[2024-01-31 23:11] VITALS: BP 124/66; PULSE 99
--- NOTE | 2024-01-31 23:15 | P.HP_ITS ---
Providers/Chief Complaint Admitting Physician: Citlaly Burger DO Primary NEW CAR MAKE READY MECHANIC: Dr. Coates Primary Care Provider: [facility] Chief Complaint: induction HPI NEW CAR MAKE READY MECHANIC History of Present Illness Marlon Laws is a 23 year old female at 39.2wk IUP admitted for Elective IOL. NADIRA 02/05/24. Pt denies problems during this . Denies YI, visual changes, SOB or CP or vaginal bleeding.Admits to good FM. 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 Denies need for treatment. C/O anxiety and depression but has not requested or been on medication thru this , states she was on zoloft sometime (2019)before but self discontinued. She denies suicidal ideas, or insomnia. Encouraged pt to discontinue use of Meth, for its unknown risk to development. EFM- Cat 1 No ctxs Cx 2cm/90%/-2 vtx. Review of Systems General: Reports: 10 or more systems reviewed and unremarkable except in HPI and below Medications/Allergies Home Medications Medication Instructions Recorded Confirmed Last Taken Type docosahexaenoic acid 200 mg 200 mg PO DAILY 10/21/23 01/25/24 Unknown History capsule ( DHA) omeprazole 20 mg capsule,delayed 20 mg PO DAILY #90 caps 10/21/23 01/25/24 Unknown Rx release metronidazole 500 mg tablet 2,000 mg (4 x 500 mg) PO ONCE #4 12/03/23 01/25/24 Unknown Rx tabs Allergies Allergy/AdvReac Type Severity Reaction Status Date / Time No Known Allergies Allergy Verified 01/25/24 10:54 PFSH NEW CAR MAKE READY MECHANIC PFSH: Medical History No pertinent past medical history Denies diabetes, asthma, hypertension, seizures, DVT/PE PCP: SIMÓN Rodríguez Depression Has had symptoms on and off since she was a teenager and has taken medication in the past. Denies any medicine use since 2049 until she was placed on Zoloft and this has been working well for her. Is being managed by her primary care provider. She does not have a therapist Surgical History History of cholecystectomy July 2019---[place] [facility] [place] Nava Pullman teeth removed (~2013) 2013 Family History Grandmother Breast cancer paternal, age at diagnosis unknown Family/Other Diabetes Maternal great aunt, [place] great grandmother Breast cancer maternal great grandmother, diagnosed at age 84 Denies family history of Colon cancer Ovarian cancer Heart disease Hyperlipidemia Hypertension Uterine cancer Thyroid disease Stroke Other Female Reproductive History: Hx Age of Menarche: 11 History History History 2 Term 1 0 Miscarriages/Ectopic 0 Living Children 1 Care NADIRA Calculator Estimated Delivery Date Method Current WG Current Estimate 02/05/24 LMP (Certain) 39w 2d Other Estimates 02/08/24 Ultrasound #1 38w 6d Specific Issues/Plans * CHLAMYDIA-- MANN at 20 wks * ANXIETY-rx buspar at 9wks; stopped tx * CONDYLOMA Vitals/I&O/Wt Last Vital Signs Pulse 99 01/31/24 23:11 BP 124/66 01/31/24 23:11 Physical Exam Const: COMMON NORMALS: no acute distress, patient oriented x3, healthy appearing, alert and well nourished Resp: COMMON NORMALS: normal respiratory effort and clear to auscultation bilaterally Cardio: COMMON NORMALS: regular rate, regular rhythm and No murmurs present (Cardio) Back/Pelvis: OTHER: Abd- soft, gravid nontender. Cx- 2cm/80%/-2 vtx. Extremity: COMMON NORMALS: no clubbing, cyanosis or edema and no calf tenderness Results Labs OB ([facility]): Obstetrics US 12/02/23 Blood Type AB Positive 07/30/23 Antibody Screen Negative 07/30/23 Hct 35.2 % (36-47) L 11/19/23 Hgb 11.30 g/dL (11.27-16.99) 11/19/23 Rho(D) Type Rh positive 07/30/23 Plt Count 288 10^3/cmm (157-399) 11/19/23 Hep Bs Antigen Non-reactive (Nonreactive) 07/20/23 Hepatitis C Antibody Non-reactive (Nonreactive) 07/20/23 Rubella IgG Antibody 37.2 IU/mL (0.0-10.0) H 07/20/23 RPR Nonreactive (Nonreactive) 07/20/23 HIV 1&2 Ab & HIV 1 Ag Non-reactive (Non-Reactiv) 07/20/23 C.trachomatis RNA (TMA) Not detected (NOT DETECTED) N.gonorrhoeae RNA (TMA) Not detected (NOT DETECTED) T. vaginalis Amp RNA Not detected (NOT DETECTED) 10/21/23 Chlamydia/GC Comment See note 10/21/23 Cystic Fibrosis Screen Negative 07/30/23 Glucose 1 Hr 50 gm 106 mg/dL (85-140) 10/21/23 Uric Acid 6.1 mg/dl (2.4-5.7) H 05/02/19 Ser , Semi-Qnt 52330.00 mIU/mL 07/18/23 HCG, Qual Positive (Negative) H 06/18/23 Urine Opiates Screen Negative ng/mL (Negative) 01/11/24 Ur Barbiturates Screen Negative ng/mL (Negative) 01/11/24 Ur Phencyclidine Scrn Negative ng/mL (Negative) 01/11/24 Ur Amphetamines Screen Positive ng/mL (Negative) H 01/11/24 U Benzodiazepines Scrn Negative ng/mL (Negative) 01/11/24 Urine Cocaine Screen Negative ng/mL (Negative) 01/11/24 U Marijuana (THC) Screen Negative ng/mL (Negative) 01/11/24 Micro Urine Specimen 07/20/23 Pap Smear Interpret See note 07/30/23 A&P Assessment and plan (1) 39 weeks gestation of : Admit for IOL. Tx if GBS Positive. (2) Positive urine drug screen: (3) Chlamydia infection affecting : Qualifiers: Trimester: second trimester Qualified Code(s): O98.812 - Other maternal infectious and parasitic diseases complicating , second trimester; A74.9 - Chlamydial infection, unspecified (4) Depression affecting in second trimester, antepartum: (5) Anxiety: (6) Condyloma: Attestations Medical Necessity Statement*: Admit for Elective IOL. Coding Level of Care Code Acute Code for Chg Fwd Diagnoses 39 weeks gestation of Z3A.39 Positive urine drug screen R82.5 Chlamydia infection affecting in second trimester O98.812; A74.9 Trimester: second trimester Depression affecting in second trimester, antepartum O99.342; F32.A Anxiety F41.9 Condyloma A63.0
[2024-01-31 23:27] VITALS: BP 123/77; PULSE 98
[2024-01-31 23:36] LABS: Amphetamines Screen Urine Positive (Negative); Barbiturates Screen Urine Negative (Negative); Benzodiazepines Screen Urine Negative (Negative); Cocaine Screen Urine Negative (Negative); Opiate Screen Urine Negative (Negative); PCP Screen Urine Negative (Negative); THC Screen Urine Negative (Negative)
[2024-01-31 23:41] VITALS: BP 120/83; PULSE 88
[2024-01-31 23:46] LABS: Basophils % 0.3 %; Eosinophils # 0.3 10^3/uL (0.0-0.8); Eosinophils % 2.7 %; Hematocrit 29.8 % (36-47); Lymphocytes # 2.2 10^3/uL (0.8-4.8); Lymphocytes % 19.3 %; Mean Corpuscular HGB Conc 31.2 g/dL (30-55); Mean Corpuscular Hemoglobin 24.3 pg (27-33); Mean Platelet Volume 8.8 fL (7.4-10.4); Monocytes # 0.7 10^3/uL (0.2-0.9); Monocytes % 6.1 %; Neutrophils # 7.99 10^3/uL (1.8-7.7); Neutrophils % 70.5 %; Nucleated Red Blood Cells % 0 %; Platelet Count 233 10^3/cmm (157-399); Red Blood Count 3.82 10^6/uL (3.85-5.65); Red Cell Distribution Width 16.1 % (12.1-15.1); White Blood Count 11.34 10^3/uL (3.29-11.43)
[2024-01-31] MEDS: lactated ringers 1,000 ML 999 ML IV (23:58)
[2024-02-01] VITALS (80 sets, daily range): BP systolic 93–176; BP diastolic 44–101; PULSE 61–110; RESP 16–20; TEMP 35.7–36.8; O2SAT 89–100; BMI 38.9
[2024-02-01] MEDS: oxytocin 30 UNIT/500 ML BAG IV (00:21)
[2024-02-01] MEDS: dextrose 5%-lactated ringers 1,000 ML 125 ML IV ×2 (01:45→12:50)
[2024-02-01] MEDS: lactated ringers 1,000 ML 999 ML IV ×2 (09:53→10:50)
[2024-02-01] MEDS: ROPivacaine syringe 100 MG/50 ML SYRINGE 10 MG EPIDURAL (10:50)
--- NOTE | 2024-02-01 10:52 | P.ANESASSM_ITS ---
Pre-Anesthetic Assessment Height/Weight: Height 1.68 m Weight 109.316 kg Temp Pulse BP Pulse Ox O2 Del Method 96.6 F L 81 103/55 89 L Room Air 02/01/24 07:39 02/01/24 10:49 02/01/24 10:49 02/01/24 10:46 02/01/24 00:51 epdiural Familial anesthetic complications: none Was Beta Jones taken within 24 hours: N/A Was Clonidine taken within 24 hours: N/A Social No alcohol and No tobacco Exam alert, oriented x 3, clear to auscultation bilaterally and regular rate & rhythm Airway Mallampati: Class II Dentition: full Anesthetic Plan ASA status: 2 Anesthesia: Regional (specify below) Risk of > 500 ml blood loss (7ml/kg in children): Yes, adequate IV access and fluids planned Medications/Allergies Home Medications Medication Instructions Recorded Confirmed Last Taken Type docosahexaenoic acid 200 mg 200 mg PO DAILY 10/21/23 01/25/24 Unknown History capsule ( DHA) omeprazole 20 mg capsule,delayed 20 mg PO DAILY #90 caps 10/21/23 01/25/24 Unknown Rx release metronidazole 500 mg tablet 2,000 mg (4 x 500 mg) PO ONCE #4 12/03/23 01/25/24 Unknown Rx tabs Allergies Allergy/AdvReac Type Severity Reaction Status Date / Time No Known Allergies Allergy Verified 01/25/24 10:54 Current Medications Generic Name Dose Route Start Last Admin Trade Name Freq PRN Reason Stop Dose Admin Dextrose/Lactated Ringer's 1,000 mls @ 125 mls/hr 01/31/24 23:45 02/01/24 09:54 Dextrose 5%-Lactated Ringers IV Infused .Q8H TALA Infusion Oxytocin 30 unit in 500 mls @ 1 mls/hr 02/01/24 00:15 02/01/24 09:25 Pitocin IV 18 milliunit/min .Q24H TALA 18 mls/hr Titration Protocol 1 MILLIUNIT/MIN Lactated Ringer's 1,000 mls @ 999 mls/hr 02/01/24 09:47 02/01/24 10:50 Lactated Ringers IV 999 mls/hr .Q1H1M PRN Administration See label comments Ropivacaine 100 mg in 50 mls @ 10 mls/hr 02/01/24 10:00 02/01/24 10:50 Naropin Syringe EPIDURAL 10 mls/hr .Q5H TALA Administration PFSH Anesthesia Medical History No pertinent past medical history Denies diabetes, asthma, hypertension, seizures, DVT/PE PCP: SIMÓN Rodríguez Depression Has had symptoms on and off since she was a teenager and has taken medication in the past. Denies any medicine use since 2049 until she was placed on Zoloft and this has been working well for her. Is being managed by her primary care provider. She does not have a therapist Surgical History History of cholecystectomy July 2019---laparoscopic procedure performed at [facility] [place] by Dr. Elijah Adair teeth removed (~2013) 2013 Family History Grandmother Breast cancer paternal, age at diagnosis unknown Family/Other Diabetes Maternal great aunt, [place] great grandmother Breast cancer maternal great grandmother, diagnosed at age 84 Denies family history of Colon cancer Ovarian cancer Heart disease Hyperlipidemia Hypertension Uterine cancer Thyroid disease Stroke Female Reproductive History : 2 Data Anesthesia 01/31/24 23:25 Short CBC 01/31/24 Range/Units 23:25 WBC 11.34 (3.29-11.43) 10^3/uL Hgb 9.30 L (11.27-16.99) g/dL Hct 29.8 L (36-47) % MCV 78.0 L (85-98) fl Plt Count 233 (157-399) 10^3/cmm Neut % (Auto) 70.5 % Neut # (Auto) 7.99 H (1.8-7.7) 10^3/uL Blood Bank 02/01/24 00:00 Blood Type AB Positive Rho(D) Type Rh positive Antibody Screen Negative Cardiac Studies: 2 No Data to Display
--- NOTE | 2024-02-01 10:52 | ANES.PROC ---
Anesthesia Procedures Procedure/Date: 02/01/24 Epidural: Time Out Performed: Yes Consents Signed: Procedure Consent Consent: requested by attending/covering physician, from patient, from other, risks and benefits reviewed and patient agrees to proceed Lumbar Level: L3-L4 Epidural position: sitting Epidural procedure: sterile prep of area, 1% lidocaine to numb the area, 18 g needle, negative for paresthesia passed, neg for paresthesia, test dose given, 1.5% xylocaine 1:200k epi (5 cc), 0.2% Ropivacaine bolus ml (5), placed PCEA, no systemic response, sterile dressing applied, L.U.D. no apparent complications and 0.2% Ropiavacaine @ mls/hr (10)
--- NOTE | 2024-02-01 11:38 | P.PN_ITS ---
CLIENT SALES AND SERVICE OFFICER Subjective 2 Subjective: Interval history: 23yo at 39.3 wk IUP feeling ctxs, j ust received Epidural. Discussed AROM to assist labor progression. Pt understands. EFM-Cat 1 Ctxs q 2-4 . AROM- clear fluid Cx- 4-5cm/70%/-2 vtx. Labor: Station: -2 Amniotic Membrane Status: Intact Monitor Mode: Palpation Contraction Pattern: Irregular Status: Category I Vitals/I&O/Wt Last Vital Signs Temp 97.8 F 02/01/24 11:08 Pulse 81 02/01/24 11:32 Resp 17 02/01/24 11:08 BP 146/62 02/01/24 11:32 Pulse Ox 93 02/01/24 11:22 O2 Del Method Room Air 02/01/24 00:51 01/31/24 02/01/24 02/01/24 22:59 06:59 14:59 Intake Total 39.185 / 39.185 / Balance 39.185 / 39.185 / Weight last 48 hrs Weight 109.316 kg Data 01/31/24 23:25 A&P Assessment and plan (1) 39 weeks gestation of : Continue care. (2) Anemia affecting in third trimester: (3) Depression affecting in second trimester, antepartum: (4) Positive urine drug screen: (5) Chlamydia infection affecting : Qualifiers: Trimester: second trimester Qualified Code(s): O98.812 - Other maternal infectious and parasitic diseases complicating , second trimester; A74.9 - Chlamydial infection, unspecified (6) Supervision of other normal : (7) Anxiety: (8) Condyloma: Attestations 2 Medical Necessity Statement*: labor management Coding Level of Care Code Acute Code for Chg Fwd Diagnoses 39 weeks gestation of Z3A.39 Anemia affecting in third trimester O99.013 Depression affecting in second trimester, antepartum O99.342; F32.A Positive urine drug screen R82.5 Chlamydia infection affecting in second trimester O98.812; A74.9 Trimester: second trimester Supervision of other normal Z34.80 Anxiety F41.9 Condyloma A63.0
[2024-02-01] MEDS: ROPivacaine syringe 100 MG/50 ML SYRINGE 13 MG EPIDURAL ×2 (12:50→14:48)
--- NOTE | 2024-02-01 14:24 | PM.MISC ---
Miscellaneous Note Purpose of Documentation: Pain Note: patient stating epidural not working as well on R side. Bolused with bupivicaine 0.25% 10 cc and increased rate to 13 ml/hr and bolus amount to 6 ml/hr. Mild to mod improvement in pain of contractions with 0.25% bolus.
--- NOTE | 2024-02-01 15:29 | PM.DELIVERY ---
Delivery Note: Date of delivery: February 01, 2024 Pre-delivery diagnoses: 39.3 wk IUP Positve UDS (Meth) Depression/Anxiety Hx of Chlamydia during Anemia during - Post-delivery diagnoses: same Procedure: viable male 8#14 7/8 Op report anesthesia: Epidural Delivering Physician: Citlaly Burger DO Estimated blood loss (mL): 300 Post Delivery Diagnoses: Chlamydia infection affecting : Qualifiers: Trimester: second trimester Qualified Code(s): O98.812 - Other maternal infectious and parasitic diseases complicating , second trimester; A74.9 - Chlamydial infection, unspecified Delivery: 23-year-old female G2, P2 delivered via of viable male from the OA presentation over intact perineum. The oral and nasal pathways were bulb suction the infant was vigorously stimulated resulting in a robust cry. After delaying of the cord clamping the cord was clamped and cut and baby placed on mother's abdomen for bonding. Three-vessel cord was noted the uterus was massaged and the placenta presented in a [place] presentation with trailing membranes. Pitocin IV solution was given in a bolus manner and with uterine massage the uterus firmed very well. The uterus was cleared of clots the perineum and vaginal vault explored with no lacerations noted. Cord blood was obtained and handed off. Post-Delivery Status: Stable History History History 2 Term 1 0 Miscarriages/Ectopic 0 Living Children 1 A&P Assessment and plan (1) (spontaneous vaginal delivery): Began care (2) Anemia affecting in third trimester: (3) 39 weeks gestation of : (4) Depression affecting in second trimester, antepartum: (5) Chlamydia infection affecting : Qualifiers: Trimester: second trimester Qualified Code(s): O98.812 - Other maternal infectious and parasitic diseases complicating , second trimester; A74.9 - Chlamydial infection, unspecified (6) Supervision of other normal : (7) Anxiety: (8) Positive urine drug screen: Coding Level of Care Code Acute Code for Chg Fwd Diagnoses (spontaneous vaginal delivery) O80 Anemia affecting in third trimester O99.013 39 weeks gestation of Z3A.39 Depression affecting in second trimester, antepartum O99.342; F32.A Chlamydia infection affecting in second trimester O98.812; A74.9 Trimester: second trimester Supervision of other normal Z34.80 Anxiety F41.9 Positive urine drug screen R82.5
[2024-02-01] MEDS: lanolin oint 7 gm 1 APPLIC TOPICAL (17:47)
[2024-02-01] MEDS: benzocaine-menthol 78 gm Canister 1 SPRAY TOPICAL (17:47)
[2024-02-01] MEDS: acetaminophen 325 mg Tablet 650 MG PO (17:47)
[2024-02-01] MEDS: docusate sodium 100 mg Capsule PO (17:47)
--- NOTE | 2024-02-01 18:13 | PC.NURSE ---
Pt up to bathroom with minimal assistance. Kristen care discussed and performed by pt. Discussed dermaplast use. Pad, underwear, gown changed.
[2024-02-01] MEDS: ibuprofen 800 mg tablet PO (20:15)
[2024-02-02 03:38] LABS: Hematocrit 29.5 % (36-47); Mean Corpuscular HGB Conc 31.2 g/dL (30-55); Mean Corpuscular Hemoglobin 24.3 pg (27-33); Mean Platelet Volume 9.1 fL (7.4-10.4); Platelet Count 221 10^3/cmm (157-399); Red Blood Count 3.78 10^6/uL (3.85-5.65); Red Cell Distribution Width 16.3 % (12.1-15.1); White Blood Count 14.28 10^3/uL (3.29-11.43)
[2024-02-02 03:46] VITALS: BP 128/74; PULSE 82; RESP 16; TEMP 36.8; O2SAT 98
--- NOTE | 2024-02-02 08:00 | ANE.PACU2 ---
Inpatient post-anesthesia follow up: Airway intact: Yes Vital signs: Temperature 98 F Pulse Rate 62 Respiratory Rate 16 Blood Pressure 103/63 Pulse Oximetry 98 Oxygen Delivery Me thod Room Air Oxygen Flow Rate Fraction of Inspir ed Oxygen Hydration adequate: Yes Nausea and vomiting: No Pain level: 1 Mental status: Baseline Epidural Start/End: Epidural Start Date: 02/01/24 Epidural Start Time: 10:30 Epidural End Date: 02/01/24 Epidural End Time: 18:15
[2024-02-02] MEDS: docusate sodium 100 mg Capsule PO (08:28)
[2024-02-02] MEDS: PRENATAL VIT NO.130/IRON/FOLIC 1 EACH TABLET PO (08:28)
[2024-02-02] MEDS: ibuprofen 800 mg tablet PO ×2 (08:28→16:07)
[2024-02-02 08:34] VITALS: BP 112/65; PULSE 71; RESP 14; TEMP 36.6; TEMP 36.7; O2SAT 97
--- NOTE | 2024-02-02 11:40 | P.DS_ITS ---
Discharge Providers CLOTHING PATTERN PREPARER Date of Admission: 02/01/24 09:48 Date of Discharge: 02/02/24 Attending Provider at Admission: Citlaly Burger DO Attending Provider at Discharge: Gerald Coates MD Primary CLOTHING PATTERN PREPARER: Gerald Coates MD Primary Care Provider: [facility] Diagnoses at Discharge Discharge Diagnosis (1) (spontaneous vaginal delivery): Status: Acute (2) Anemia affecting in third trimester: Status: Acute (3) 39 weeks gestation of : Status: Acute (4) Depression affecting in second trimester, antepartum: Status: Acute (5) Chlamydia infection affecting : Status: Acute Qualifiers: Trimester: second trimester Qualified Code(s): O98.812 - Other maternal infectious and parasitic diseases complicating , second trimester; A74.9 - Chlamydial infection, unspecified (6) Supervision of other normal : Status: Acute (7) Anxiety: Status: Acute (8) Positive urine drug screen: Status: Acute Reason for Visit Reason for Visit: induction Hospital Course Hospital Course Mrs. Laws 23-year-old female with anatomy gestational age at 39 weeks admitted for elective induction. She progressed to have a spontaneous vaginal delivery without complication. observation was uneventful. She is afebrile and hemodynamically stable day 1. Tolerating diet well. Ambulating without difficulty. She was counseled regarding pelvic rest for 6 weeks (no sex, no tampons, no vaginal douches). Return to the emergency room if any fever, increased bleeding or pain. Information Peripartum Data: Infant Delivery Method: Vaginal Physical Exam Narrative: GA; alert and oriented x 3 HEENT: normal Breasts: engorged Nipples - skin intact Lungs; clear to auscultation Heart: regular rhythm, no murmurs. Abd: Appropriately tender. BS+. Uterine fundus below umbilicus. No Fundal Tenderness. Perineum: normal lochia. Extremities: no edema, no cyanosis, no tenderness. Urinary Catheter Management: Garcia Latex: Cath Placed During This Visit: yes, but has since been removed by the nurse Reason for Continuing Indwelling Catheter: Decision to DC Catheter Urinary Catheter Date of Insertion: 02/01/24 Urinary Catheter Time of Insertion: 11:26 Date Urinary Catheter Removed: 02/01/24 Time Urinary Catheter Discontinued: 15:09 History History History 2 Term 1 0 Miscarriages/Ectopic 0 Living Children 1 Discharge Data Studies Completed and Pending Laboratory Results WBC 14.28 10^3/uL (3.29-11.43) H 02/02/24 03:10 RBC 3.78 10^6/uL (3.85-5.65) L 02/02/24 03:10 Hgb 9.20 g/dL (11.27-16.99) L 02/02/24 03:10 Hct 29.5 % (36-47) L 02/02/24 03:10 MCV 78.0 fl (85-98) L 02/02/24 03:10 MCH 24.3 pg (27-33) L 02/02/24 03:10 MCHC 31.2 g/dL (30-55) 02/02/24 03:10 RDW 16.3 % (12.1-15.1) H 02/02/24 03:10 Plt Count 221 10^3/cmm (157-399) 02/02/24 03:10 MPV 9.1 fL (7.4-10.4) 02/02/24 03:10 Neut % (Auto) 70.5 % 01/31/24 23:25 Lymph % (Auto) 19.3 % 01/31/24 23:25 [place] % (Auto) 6.1 % 01/31/24 23: Eos % (Auto) 2.7 % 01/31/24 23: Baso % (Auto) 0.3 % 01/31/24 23: Neut # (Auto) 7.99 10^3/uL (1.8-7.7) H 01/31/24 23:25 Lymph # (Auto) 2.2 10^3/uL (0.8-4.8) 01/31/24 23:25 [place] # (Auto) 0.7 10^3/uL (0.2-0.9) 01/31/24 23:25 Eos # (Auto) 0.3 10^3/uL (0.0-0.8) 01/31/24 23:25 Baso # (Auto) 0.0 10^3/uL (0.0-0.1) 01/31/24 23:25 Nucleated RBC % (auto) 0 % 01/31/24 23:25 Nucleated RBCs # 0.0 /100WBC 01/31/24 23:25 Urine Opiates Screen Negative ng/mL (Negative) 01/31/24 23:00 Ur Barbiturates Screen Negative ng/mL (Negative) 01/31/24 23:00 Ur Phencyclidine Scrn Negative ng/mL (Negative) 01/31/24 23:00 Ur Amphetamines Screen Positive ng/mL (Negative) H 01/31/24 23:00 U Benzodiazepines Scrn Negative ng/mL (Negative) 01/31/24 23:00 Urine Cocaine Screen Negative ng/mL (Negative) 01/31/24 23:00 U Marijuana (THC) Screen Negative ng/mL (Negative) 01/31/24 23:00 Blood Type AB Positive 02/01/24 00:00 Rho(D) Type Rh positive 02/01/24 00:00 Antibody Screen Negative 02/01/24 00:00 Vitals Last Vital Signs Temp 98.0 F 02/02/24 08:34 Pulse 71 02/02/24 08:34 Resp 14 02/02/24 08:34 BP 112/65 02/02/24 08:34 Pulse Ox 97 02/02/24 08:34 O2 Del Method Room Air 02/02/24 08:34 Results Labs OB ([facility]): Obstetrics US 12/02/23 Blood Type AB Positive 02/01/24 Antibody Screen Negative 02/01/24 Hct 29.5 % (36-47) L 02/02/24 Hgb 9.20 g/dL (11.27-16.99) L 02/02/24 Rho(D) Type Rh positive 02/01/24 Plt Count 221 10^3/cmm (157-399) 02/02/24 Hep Bs Antigen Non-reactive (Nonreactive) 07/20/23 Hepatitis C Antibody Non-reactive (Nonreactive) 07/20/23 Rubella IgG Antibody 37.2 IU/mL (0.0-10.0) H 07/20/23 RPR Nonreactive (Nonreactive) 07/20/23 HIV 1&2 Ab & HIV 1 Ag Non-reactive (Non-Reactiv) 07/20/23 C.trachomatis RNA (TMA) Not detected (NOT DETECTED) N.gonorrhoeae RNA (TMA) Not detected (NOT DETECTED) T. vaginalis Amp RNA Not detected (NOT DETECTED) 10/21/23 Chlamydia/GC Comment See note 10/21/23 Cystic Fibrosis Screen Negative 07/30/23 Glucose 1 Hr 50 gm 106 mg/dL (85-140) 10/21/23 Uric Acid 6.1 mg/dl (2.4-5.7) H 05/02/19 Ser , Semi-Qnt 98994.00 mIU/mL 07/18/23 HCG, Qual Positive (Negative) H 06/18/23 Urine Opiates Screen Negative ng/mL (Negative) 01/31/24 Ur Barbiturates Screen Negative ng/mL (Negative) 01/31/24 Ur Phencyclidine Scrn Negative ng/mL (Negative) 01/31/24 Ur Amphetamines Screen Positive ng/mL (Negative) H 01/31/24 U Benzodiazepines Scrn Negative ng/mL (Negative) 01/31/24 Urine Cocaine Screen Negative ng/mL (Negative) 01/31/24 U Marijuana (THC) Screen Negative ng/mL (Negative) 01/31/24 Micro Urine Specimen 07/20/23 Pap Smear Interpret See note 07/30/23 Discharge Plan Discharge Patient Disposition: Home Condition: Stable Prescriptions: New docusate sodium [Colace] 100 mg capsule 100 mg PO BID Qty: 60 0RF acetaminophen 325 mg capsule 325 mg PO Q4H PRN (Reason: fever or pain) Qty: 60 0RF ferrous sulfate [Iron (ferrous sulfate)] 325 mg (65 mg iron) tablet 325 mg PO BID Qty: 60 0RF ibuprofen 800 mg tablet 800 mg PO TID PRN (Reason: pain) Qty: 60 0RF Continued metronidazole 500 mg tablet 2,000 mg PO ONCE Qty: 4 0RF DHA 200 mg capsule 200 mg PO DAILY omeprazole 20 mg capsule,delayed release(DR/EC) 20 mg PO DAILY Qty: 90 0RF Discharge Orders: Discharge Order (Routine); Ordered 02/02/24 Ordered By: Gerald Coates Referrals: Gerald Coates MD [Physician] - 6 Weeks Discharge Diet: Usual diet Discharge Activity: Limit activity as instructed Patient Instructions: Depression (DC), Opioid Safety (DC), Preeclampsia and Eclampsia After Delivery (GEN), Hemorrhage (DC), OB Discharge Report, OB Food/Drug Interaction Guide, Opioid Safety, OB Home Care, OB Vaginal Deliveries - [facility], Abnormal Bleeding Activity Restrictions/Additional Instructions: 1. Please call [facility] on next working day to make your appointment in 6 weeks. 2. Please stay home until you come back to the clinic on first post- hospatilization check up. 3. Please follow instructions on your medications CAREFULLY. 4. If you have abdominal incision, do not cover it unless dressing is necessary because of drainage. OK to shower, but avoid bath. Leave steri-strips until they fall off. If they are still on one week after surgery, you may remove them. 5. If you had vaginal surgery or vaginal repair, Dr. Coates may instruct you to take SITZ bath. 6. Yellow, blood tinged odorous vaginal discharge is usually normal after hysterectomy or vaginal surgeries. 7. No SEXUAL INTERCOURSE, tampons, or douches until you are completely released from the post-operative care. 8. Avoid constipation by eating right and maybe using some Metamucil or Milk of Magnesia. 9. All prescription refills are given during the working hours. Please do no wait till it runs out. Call the clinic at [phone] before your medication runs out. The clinic will get in touch with your doctor to prescribe medications if necessary. 10. Please remain within 40 mile radius from our hospital because emergencies do happen now and then during the post-operative period. 11. If you have stairs at home, take one step at a time slowly and minimize the number of trips. It helps to stay in one floor for the next few days. No lifting except what you can lift by one hand until you are released from the post-operative care. 12. Driving is discouraged until you are well healed. It may be 3-4 weeks before you feel strong enough to drive. You should be able to turn and look through the rear window without pain and you should be able to push the brake pedal very hard without pain before you drive. No fast rules, but SAFETY should be your primary concern. DO NOT drive if you are on sedating medications such as narcotics. 13. Call the clinic (during working hours) to make urgent appointment or go to the Emergency room, if any of the following occurs: i. Vaginal bleeding becomes heavy, more than a period. ii. Incision becomes red and sore, or drains pus. iii. Your TEMPERATURE is over 100.4F or you have chill. iv. IV site becomes red and swollen (a little ``knot?? is usually OK) v. Persistent nausea and vomiting vi. Persistent constipation or diarrhea vii. Rash or allergic reaction to medications. Discharge Attestations CLOTHING PATTERN PREPARER Time Spent in Discharge Care*: greater than 30 min Coding Level of Care Code Acute Code for Chg Fwd Diagnoses (spontaneous vaginal delivery) O80 Anemia affecting in third trimester O99.013 39 weeks gestation of Z3A.39 Depression affecting in second trimester, antepartum O99.342; F32.A Chlamydia infection affecting in second trimester O98.812; A74.9 Trimester: second trimester Supervision of other normal Z34.80 Anxiety F41.9 Positive urine drug screen R82.5
[2024-02-02 16:22] VITALS: BP 103/63; PULSE 62; RESP 16; TEMP 36.6; O2SAT 98
== END 2024-02-02 16:23 | disposition home or self-care (01) | DRG 806 ==
LOC: OPOB 22:32 → OBGYN 02-01 04:12
PROVIDERS: Admitting Provider Obstetrics & Gynecology; Visit Provider Obstetrics & Gynecology
DX: O99.324 Drug use complicating childbirth (principal); O98.32 Other infections with a predominantly sexual mode of transmission complicating childbirth; Z37.0 Single live birth; F15.90 Other stimulant use, unspecified, uncomplicated; O99.02 Anemia complicating childbirth; D64.9 Anemia, unspecified; O99.344 Other mental disorders complicating childbirth; F32.A Depression, unspecified; F41.9 Anxiety disorder, unspecified; A63.0 Anogenital (venereal) warts; Z3A.39 39 weeks gestation of pregnancy; A56.8 Sexually transmitted chlamydial infection of other sites
CPT/HCPCS: 36415; 51702; 59409; 80306; 85025; 85027; 86850; 86900; G0378; J2590; J2795; J7120; J7121